=== PATIENT | female | born 1955 | race Caucasian/White ===

== ENCOUNTER 2018-05-04 23:30 | Emergency (ER) | payer BC ==
[~2018-05-04] VITALS: Ht 160 cm; Wt 88.5 kg
--- NOTE | 2018-05-04 23:40 | ED.ADGEN ---
Adult General Chief Complaint Chief Complaint '".. I am up here visiting family.. from [place]... but I had just eaten dinner.. and I got really nauseated .. and started vomiting... " " I don't want to even talk about food..." HPI HPI Patient is a 62 year old female who presents with above hx with complaint s of nausea, vomiting and abd. pain for past 45 minutes. Pt. reports the vomited up her dinner products of hash brown and meat. Other family members ate the same dinner but did not get sick. Pt. has no history of prior abdomen surgeries. Pain is generalized lower abdomen area. Patient denies other health issues. Review of Systems Review of Systems Constitutional: Denies fever or chills [] Eyes: Denies change in visual acuity, redness, or eye pain [] HENT: Denies nasal congestion or sore throat [] Respiratory: Denies cough or shortness of breath [] Cardiovascular: No additional information not addressed in HPI [] GI: Complaints of generalized abdominal pain, nausea, vomiting,. Denies bloody stools or diarrhea [] : Denies dysuria or hematuria [] Musculoskeletal: Denies back pain or joint pain [] Integument: Denies rash or skin lesions [] Neurologic: Denies headache, focal weakness or sensory changes [] Endocrine: Denies polyuria or polydipsia [] All other systems were reviewed and found to be within normal limits, except as documented in this note. Family History Family History Noncontributory Current Medications Current Medications Current Medications Medications (Trade) Dose Ordered Sig/Sumanth Start Time Stop Time Status Last Admin Dose Admin Diphenhydramine HCl (Benadryl) 25 mg 1X ONCE 05/05/18 03:00 05/05/18 03:01 DC 05/05/18 02:30 25 MG Famotidine (Pepcid Vial) 20 mg 1X ONCE 05/05/18 00:30 05/05/18 00:31 DC 05/05/18 00:50 20 MG Lactated Ringer's 1,000 ml @ 1,000 mls/hr 1X ONCE 05/05/18 03:00 05/05/18 04:00 DC 05/05/18 02:30 1,000 MLS/HR Ondansetron HCl (Zofran) 8 mg 1X ONCE 05/05/18 00:30 1/3/19 00:31 DC 05/05/18 00:50 8 MG Potassium Chloride 100 ml @ 100 mls/hr Q1HR 05/05/18 01:00 05/05/18 02:59 DC 05/05/18 01:51 100 MLS/HR Prochlorperazine Edisylate (Compazine) 10 mg 1X ONCE 05/05/18 03:00 05/05/18 03:01 DC 05/05/18 02:30 10 MG Allergies Allergies Allergies Coded Allergies Type Severity Reaction Last Updated Verified No Known Drug Allergies 05/05/18 No Physical Exam Physical Exam Constitutional: Moderately acute distress, ill appearance. [] HENT: Normocephalic, atraumatic, bilateral external ears normal, oropharynx moist, no oral exudates, nose normal. [] Eyes: PERRLA, EOMI, conjunctiva normal, no discharge. [] Neck: Normal range of motion, no tenderness, supple, no stridor. [] Cardiovascular:Heart rate regular rhythm, no murmur [] Lungs & Thorax: Bilateral breath sounds equal at apex auscultation [] Abdomen: Bowel sounds hyperactive, soft, generalized tenderness, no masses, no pulsatile masses. Active brown watery odorous diarrhea. Obese. Skin: Warm, dry, no erythema, no rash. [] Back: No tenderness, no CVA tenderness. [] Extremities: No tenderness, no cyanosis, no clubbing, ROM intact, no edema. [] Neurologic: Alert and oriented X 3, normal motor function, normal sensory function, no focal deficits noted. [] Psychologic: Affect anxious, judgement normal, mood normal. [] Current Patient Data Vital Signs Vital Signs Date Time Temp Pulse Resp B/P (MAP) Pulse Ox O2 Delivery O2 Flow Rate FiO2 05/05/18 04:10 98.4 92 18 117/64 (81) 95 Room Air Lab Results Laboratory Tests Test 05/05/18 00:10 White Blood Count 13.0 x10^3/uL (4.0-11.0) H Red Blood Count 4.71 x10^6/uL (3.50-5.40) Hemoglobin 13.5 g/dL (12.0-15.5) Hematocrit 39.4 % (36.0-47.0) Mean Corpuscular Volume 84 fL (79-100) Mean Corpuscular Hemoglobin 29 pg (25-35) Mean Corpuscular Hemoglobin Concent 34 g/dL (31-37) Red Cell Distribution Width 13.5 % (11.5-14.5) Platelet Count 240 x10^3/uL (140-400) Neutrophils (%) (Auto) 87 % (31-73) H Lymphocytes (%) (Auto) 7 % (24-48) L Monocytes (%) (Auto) 5 % (0-9) Eosinophils (%) (Auto) 0 % (0-3) Basophils (%) (Auto) 1 % (0-3) Neutrophils # (Auto) 11.4 x10^3uL (1.8-7.7) H Lymphocytes # (Auto) 0.9 x10^3/uL (1.0-4.8) L Monocytes # (Auto) 0.6 x10^3/uL (0.0-1.1) Eosinophils # (Auto) 0.0 x10^3/uL (0.0-0.7) Basophils # (Auto) 0.2 x10^3/uL (0.0-0.2) Sodium Level 138 mmol/L (136-145) Potassium Level 2.8 mmol/L (3.5-5.1) *L Chloride Level 99 mmol/L (98-107) Carbon Dioxide Level 28 mmol/L (21-32) Anion Gap 11 (6-14) Blood Urea Nitrogen 18 mg/dL (7-20) Creatinine 1.0 mg/dL (0.6-1.0) Estimated GFR (Cockcroft-Gault) 56.0 Glucose Level 135 mg/dL (70-99) H Calcium Level 9.3 mg/dL (8.5-10.1) Total Bilirubin 0.3 mg/dL (0.2-1.0) Direct Bilirubin 0.1 mg/dL (0.0-0.2) Aspartate Amino Transferase (AST) 28 U/L (15-37) Alanine Aminotransferase (ALT) 30 U/L (14-59) Alkaline Phosphatase 81 U/L (46-116) Troponin I Quantitative < 0.017 ng/mL (0-0.055) Total Protein 8.6 g/dL (6.4-8.2) H Albumin 4.2 g/dL (3.4-5.0) Amylase Level 53 U/L (25-115) Lipase 120 U/L (73-393) EKG EKG My interpretation of EKG shows a sinus rhythm at 71 bpm. No acute morphology[] Radiology/Procedures Radiology/Procedures My interpretation of acute abdomen film shows no large pulmonary infiltrates or acute findings. No free air in the diaphragm. Nonobstructive bowel gas pattern. Minimal stool. Arthritic changes. Course & Med Decision Making Course & Med Decision Making Pertinent Labs and Imaging studies reviewed. (See chart for details) Pt. reports improvement, but after up, developed more nausea and vomiting and episode of acute diarrhea -2:22 hrs. Pt. now request discharge. Feeling much better.. 330 hrs. [] Final Impression Final Impression 1. Nausea Vomiting Diarrhea- Acute Gastroenteritis 2. Abdomen Pain[] 3. Hypokalemia 2.8 4. Mild Leukocytosis 13.0 Dragon Disclaimer Dragon Disclaimer This electronic medical record was generated, in whole or in part, using a voice recognition dictation system. Dragon Disclaimer This chart was dictated in whole or in part using Voice Recognition software in a busy, high-work load, and often noisy Emergency Department environment. It may contain unintended and wholly unrecognized errors or omissions. Discharge Summary Visit Information Final Diagnosis Problems Medical Problems: (1) Acute gastroenteritis Status: Acute (2) Hypokalemia Status: Acute Brief Hospital Course Allergies Allergies Coded Allergies Type Severity Reaction Last Updated Verified No Known Drug Allergies 05/05/18 No Vital Signs Vital Signs Date Time Temp Pulse Resp B/P (MAP) Pulse Ox O2 Delivery O2 Flow Rate FiO2 05/05/18 04:10 98.4 92 18 117/64 (81) 95 Room Air Lab Results Laboratory Tests Test 05/05/18 00:10 White Blood Count 13.0 x10^3/uL (4.0-11.0) Red Blood Count 4.71 x10^6/uL (3.50-5.40) Hemoglobin 13.5 g/dL (12.0-15.5) Hematocrit 39.4 % (36.0-47.0) Mean Corpuscular Volume 84 fL (79-100) Mean Corpuscular Hemoglobin 29 pg (25-35) Mean Corpuscular Hemoglobin Concent 34 g/dL (31-37) Red Cell Distribution Width 13.5 % (11.5-14.5) Platelet Count 240 x10^3/uL (140-400) Neutrophils (%) (Auto) 87 % (31-73) Lymphocytes (%) (Auto) 7 % (24-48) Monocytes (%) (Auto) 5 % (0-9) Eosinophils (%) (Auto) 0 % (0-3) Basophils (%) (Auto) 1 % (0-3) Neutrophils # (Auto) 11.4 x10^3uL (1.8-7.7) Lymphocytes # (Auto) 0.9 x10^3/uL (1.0-4.8) Monocytes # (Auto) 0.6 x10^3/uL (0.0-1.1) Eosinophils # (Auto) 0.0 x10^3/uL (0.0-0.7) Basophils # (Auto) 0.2 x10^3/uL (0.0-0.2) Sodium Level 138 mmol/L (136-145) Potassium Level 2.8 mmol/L (3.5-5.1) Chloride Level 99 mmol/L (98-107) Carbon Dioxide Level 28 mmol/L (21-32) Anion Gap 11 (6-14) Blood Urea Nitrogen 18 mg/dL (7-20) Creatinine 1.0 mg/dL (0.6-1.0) Estimated GFR (Cockcroft-Gault) 56.0 Glucose Level 135 mg/dL (70-99) Calcium Level 9.3 mg/dL (8.5-10.1) Total Bilirubin 0.3 mg/dL (0.2-1.0) Direct Bilirubin 0.1 mg/dL (0.0-0.2) Aspartate Amino Transf (AST/SGOT) 28 U/L (15-37) Alanine Aminotransferase (ALT/SGPT) 30 U/L (14-59) Alkaline Phosphatase 81 U/L (46-116) Troponin I Quantitative < 0.017 ng/mL (0-0.055) Total Protein 8.6 g/dL (6.4-8.2) Albumin 4.2 g/dL (3.4-5.0) Amylase Level 53 U/L (25-115) Lipase 120 U/L (73-393) Brief Hospital Course Ms. Ro is a 62 old female who presented with acute on set of gastroenteritis. Found to be hypokalemic. Discharge Information Condition at Discharge: Improved, Stable Disposition/Orders: D/C to Home Dischare Medications Current Medications Lactated Ringer's 1,000 ml @ 1,000 mls/hr Q1H IV Last administered on at 00:49; Admin Dose 1,000 MLS/HR; Start 05/05/18 at 00:30; Stop 05/05/18 at 01: 29; Status DC Ondansetron HCl (Zofran) 8 mg 1X ONCE IV Last administered on 05/05/18at 00:50; Admin Dose 8 MG; Start 05/05/18 at 00:30; Stop 05/05/18 at 00:31; Status DC Famotidine (Pepcid Vial) 20 mg 1X ONCE IVP Last administered on 05/05/18at 00:50 ; Admin Dose 20 MG; Start 05/05/18 at 00:30; Stop 05/05/18 at 00:31; Status DC Potassium Chloride 100 ml @ 50 mls/hr Q1H IV ; Start 05/05/18 at 01:00; Stop 05/05/18 at 02:59; Status UNV Potassium Chloride 100 ml @ 100 mls/hr Q1HR IV Last administered on 05/05/18at 01:51; Admin Dose 100 MLS/HR; Start 05/05/18 at 01:00; Stop 05/05/18 at 02:59; Status DC Lactated Ringer's 1,000 ml @ 1,000 mls/hr 1X ONCE IV Last administered on 05/05at 02:30; Admin Dose 1,000 MLS/HR; Start 05/05/18 at 03:00; Stop 05/05/18 at 04 :00; Status DC Prochlorperazine Edisylate (Compazine) 10 mg 1X ONCE IV Last administered on at 02:30; Admin Dose 10 MG; Start 05/05/18 at 03:00; Stop 05/05/18 at 03:01; Status DC Diphenhydramine HCl (Benadryl) 25 mg 1X ONCE IVP Last administered on at 02:30; Admin Dose 25 MG; Start 1/3/19 at 03:00; Stop 05/05/18 at 03:01; Status DC Active Scripts Active Zofran (Ondansetron Hcl) 8 Mg Tablet 8 Mg PO QIDPRN PRN Hydrocodone-Ibuprofen 7.5-200 (Hydrocodone/Ibuprofen) 1 Each Tablet 1 Tab PO PRN Q6HRS PRN EUNICE ALAMO MD May 04, 2018 23:40
[2018-05-05 00:26] LABS: BASO # 0.2 x10^3/uL (0.0-0.2); BASO % 1 % (0-3); EOS % 0 % (0-3); HEMATOCRIT 39.4 % (36.0-47.0); HEMOGLOBIN 13.5 g/dL (12.0-15.5); LYMPH # 0.9 x10^3/uL (1.0-4.8); LYMPH % 7 % (24-48); MEAN CORPUSCULAR HEMOGLOBIN 29 pg (25-35); MEAN CORPUSCULAR HGB CONC 34 g/dL (31-37); MEAN CORPUSCULAR VOLUME 84 fL (79-100); MONO # 0.6 x10^3/uL (0.0-1.1); MONO % 5 % (0-9); NEUT # 11.4 x10^3uL (1.8-7.7); NEUT % 87 % (31-73); PLATELET COUNT 240 x10^3/uL (140-400); RED BLOOD COUNT 4.71 x10^6/uL (3.50-5.40); RED CELL DISTRIBUTION WIDTH 13.5 % (11.5-14.5)
[2018-05-05] MEDS ORDERED: FAMOTIDINE 20 MG/2 ML VIAL IVP ONE (00:30)
[2018-05-05] MEDS ORDERED: IV RINGERS SOLUTION,LACTATED 1,000 ML IV SCH (00:30)
[2018-05-05] MEDS ORDERED: ONDANSETRON PF 4 MG/2 ML VIAL. IV ONE (00:30)
[2018-05-05 00:40] LABS: ALBUMIN 4.2 g/dL (3.4-5.0); CALCIUM 9.3 mg/dL (8.5-10.1); DIRECT BILIRUBIN 0.1 mg/dL (0.0-0.2); TOTAL BILIRUBIN 0.3 mg/dL (0.2-1.0); TOTAL PROTEIN 8.6 g/dL (6.4-8.2)
[2018-05-05 00:42] LABS: POTASSIUM 2.8 mmol/L (3.5-5.1)
[2018-05-05] MEDS ORDERED: POTASSIUM CHLORIDE 20MEQ 100 ML IV SCH (01:00)
[2018-05-05] MEDS: POTASSIUM CHLORIDE 10MEQ 100 ML IV SCH ×2 (01:02→01:51)
--- NOTE | 2018-05-05 02:54 | RAD ---
Acute abdominal series with PA chest: Reason for examination: Nausea, vomiting and abdominal pain. No abdominal images were obtained because the patient was too sick and had to be taken back to the emergency room. The heart size is normal. Mediastinum is unremarkable. Lung granda are clear. No acute bony abnormalities are seen. Impression: No acute cardiopulmonary disease. Electronically signed by: Heaven Vitale MD (05/05/2018 2:50 AM) [id number]
[2018-05-05] MEDS ORDERED: diphenhydrAMINE 50 MG/ML VIAL IVP ONE (03:00)
[2018-05-05] MEDS ORDERED: PROCHLORPERAZINE 10 MG/2 ML VIAL. IV ONE (03:00)
[2018-05-05] MEDS ORDERED: IV RINGERS SOLUTION,LACTATED 1,000 ML IV ONE (03:00)
[2018-05-05] MEDS ORDERED: ONDA8TAB9 PO (03:27)
[2018-05-05] MEDS ORDERED: HYDR-1179 PO (03:27)
[2018-05-05 04:10] VITALS: BP 117/64
--- NOTE | 2018-05-05 05:51 | EKG ---
[address] [address] Test Date: 2018-05-04 Test Time: 23:55:15 Pat Name: BRANDAN MENON Department: Room: Gender: F Manager Quality Improvement: : 1955 Requested By: EUNICE ALAMO Order Number: [id number] Reading MD: Measurements Intervals Rotan Rate: 71 P: -27 MA: 138 QRS: 6 QRSD: 90 T: -9 QT: 428 QTc: 470 Interpretive Statements SINUS RHYTHM NO SPECIFIC ECG ABNORMALITIES RI6.01 Unconfirmed report No previous ECG available for comparison
== END 2018-05-05 04:10 | disposition home or self-care (01) ==
LOC: ER 23:30
DX: K52.9 Noninfective gastroenteritis and colitis, unspecified (principal); E87.6 Hypokalemia; D72.829 Elevated white blood cell count, unspecified
CPT/HCPCS: 36415; 74022; 80048; 80076; 82150; 83690; 84484; 85025; 87493; 93005; 96361; 96365; 96366; 96375; 99284; J0780; J1200; J2405; J3480; J3490; J7120